=== PATIENT | male | born 1950 | race Caucasian/White ===

== ENCOUNTER → 2016-06-26 | Outpatient (CLI) | payer MEDICARE, OTHER ==
[~2016-06-26] MED LIST: CELEBREX200 MG PO; COUMADIN ** IA5 MG PO; COZAAR50 MG PO; LEVOTHROID (SY50 MCG PO; LOPRESSOR25 MG PO; PROTONIX40 MG PO; TRIAMTERENE PO; XANAX0.25 MG PO; ZOCOR20 MG PO
[2016-06-26 16:53] LABS: ALK PHOS 74 IU/L (33-138); ALT 18 IU/L (12-78); ANION GAP 15.2 (10.0-19.0); AST 16 IU/L (10-40); BLOOD UREA NITROGEN 24 mg/dL (6-24); CALCIUM 9.1 mg/dL (8.5-10.5); CHLORIDE 101 mMol/L (96-110); CO2 25 mMol/L (22-32); CREATININE 1.2 mg/dL (0.6-1.3); ESTIMATED GFR (MDRD EQUATION) > 60; POTASSIUM 4.2 mMol/L (3.7-5.1); SODIUM 137 mMol/L (135-145); TOTAL BILIRUBIN 0.9 mg/dL (0.0-1.5); TOTAL PROTEIN 7.8 g/dL (6.0-8.4)
== END ==
LOC: LNHI 16:31
PROVIDERS: Internal Medicine Interventional Cardiology
DX: I48.91 Unspecified atrial fibrillation (principal); I42.9 Cardiomyopathy, unspecified